=== PATIENT | male | born 1925 | race Caucasian/White ===

== ENCOUNTER 2017-01-28 17:28 | Emergency (ER) | payer MEDICARE, OTHER ==
[2017-01-28] MEDS ORDERED: fentaNYL 100 MCG/2 ML SDV IM ONE (18:40)
--- NOTE | 2017-01-28 18:48 | EDM.PDOC ---
ED HPI GENERAL MEDICAL PROBLEM - General Chief Complaint: General Stated Complaint: FALL/LT SIDE PAIN Time Seen by Provider: 01/28/17 18:11 Source of Information: Reports: Patient, Family (Spouse), RN Notes Reviewed History Limitations: Reports: No Limitations - History of Present Illness INITIAL COMMENTS - FREE TEXT/NARRATIVE: Brought by his of 9 years Chief complaint: Fall, left side injury HPI: 89-year-old male from [place], he and his are staying at a home on [address] Has a history of disequilibrium, Fell twice today First incident occurred about 6:30 AM. He was in the bedroom carrying clothes back he up and tripped over a suitcase on the floor. Hit the back of his head on dresser drawers. His was in the room and witnessed the fall. He got up right away on his own. He did not really have any pain and there is no swelling of the back of her head. He has breakfast and his reports that he behaved normally the rest of the day, no nausea or vomiting. Second episode occurred at about 11 AM, he stumbled in the garage, landing on the floor, landing on something on his left side. He got up, did have some pain right away but he did not tell his about the fall until later. They've come into town to do groceries, the pain became too intense as he was walking through the house so they came here. He was able to get in and out of the car on his own but with some difficulty. Pain is on the left side of the chest and in the left side, aggravated by deep breath movement turning laughing and by touching. Better if he stays completely still. No fever No cough No recent illness History includes coronary artery disease but no heart attack, one stent. He has a narrow valve in his heart, presumably aortic stenosis, he is not a surgical candidate He is on clopidogrel and Xarelto. Left Abdomen Pain Score (Numeric/FACES): 6 - Related Data Allergies Allergy/AdvReac Type Severity Reaction Status Date / Time levofloxacin [From Levaquin] Allergy Abdominal Verified 01/28/17 18:07 Pain Home Meds: Home Meds *Xarelto PO DAILY 01/28/17 [History] Carvedilol [Carvedilol] 6.25 mg PO BID 01/28/17 [History] Clopidogrel [Plavix] 75 mg PO DAILY 01/28/17 [History] Furosemide [Furosemide] 20 mg PO ASDIRECTED 01/28/17 [History] Gabapentin [Neurontin] 300 mg PO BID 01/28/17 [History] Hydrocodone/Acetaminophen [Hydrocodon-Acetaminophen 5-325] 1 each PO Q4HR PRN # 8 tablet 01/28/17 [Rx] Tamsulosin [Tamsulosin 24 Hr] 0.4 mg PO DAILY 01/28/17 [History] amLODIPine Besylate [Norvasc] 2.5 mg PO DAILY 01/28/17 [History] atorvaSTATin [Lipitor] 40 mg PO BEDTIME 01/28/17 [History] traMADol [Take Home: traMADol 50 MG, 4 Tab Pack] 50 mg PO ASDIRECTED PRN [History] Past Medical History HEENT History: Reports: Cataract, Hard of Hearing Cardiovascular History: Reports: Afib, High Cholesterol, Hypertension, Pacemaker , Other (See Below) Other Cardiovascular History: valve stenosis Gastrointestinal History: Reports: Cholelithiasis, GERD Genitourinary History: Reports: BPH Musculoskeletal History: Reports: Back Pain, Chronic Oncologic (Cancer) History: Reports: Prostate - Past Surgical History HEENT Surgical History: Reports: Cataract Surgery Cardiovascular Surgical History: Reports: Carotid Stents, Percutaneous Transluminal Angioplasty, Other (See Below) (Thoracic surgery for traumatic hemopericardium, a complication of his pacemaker insertion) GI Surgical History: Reports: Appendectomy, Cholecystectomy, Colonoscopy, Hernia Repair/Other Male Surgical History: Reports: Other (See Below) Other Male Surgeries/Procedures: radiation of prostrate Musculoskeletal Surgical History: Reports: Other (See Below) Other Musculoskeletal Surgeries/Procedures:: cartilage implant into both knees Social & Family History - Tobacco Use Smoking Status *Q: Former Smoker Used Tobacco, but Quit: Yes Month Tobacco Last Used: many years ago - Caffeine Use Caffeine Use: Reports: None - Recreational Drug Use Recreational Drug Use: No ED ROS GENERAL - Review of Systems Review Of Systems: See Below Constitutional: Reports: No Symptoms HEENT: Reports: Hearing Loss (Chronic). Denies: Eye Pain, Nose Pain, Rhinitis, Throat Pain Respiratory: Reports: Shortness of Breath (Hurts to breathe so he is breathing more shallowly). Denies: Cough Cardiovascular: Reports: Chest Pain. Denies: Blood Pressure Problem, Lightheadedness, Palpitations, Syncope Endocrine: Reports: No Symptoms GI/Abdominal: Reports: No Symptoms : Reports: No Symptoms Musculoskeletal: Reports: No Symptoms Skin: Reports: No Symptoms Neurological: Reports: Difficulty Walking (Balance problems). Denies: Headache , Numbness, Weakness Psychiatric: Reports: No Symptoms ED EXAM, GENERAL - Physical Exam Exam: See Below Exam Limited By: No Limitations General Appearance: Alert, Mild Distress, Other (Pleasant alert and interactive , definitely coherent without any evidence of cognitive decline) Eye Exam: Bilateral Eye: Normal Inspection Ears: Normal External Exam Nose: Normal Inspection, Normal Mucosa Throat/Mouth: Normal Inspection Head: Normocephalic, Other (No scalp swelling but there is a small bruise near the vertex of the scalp) Neck: Normal Inspection, Supple, Non-Tender Respiratory/Chest: Lungs Clear, Normal Breath Sounds, Splinting, Other (Chest tenderness left lower anterior ribs and left flank area, palpation of the front. Aggravates the back area) Cardiovascular: Normal Peripheral Pulses, Regular Rate, Rhythm GI/Abdominal: Normal Bowel Sounds, Soft, Non-Tender, No Organomegaly, No Distention, Other (Large body habitus makes examination difficult) Extremities: Normal Inspection, Non-Tender Neurological: Alert, Oriented, Normal Cognition, No Motor/Sensory Deficits Psychiatric: Normal Affect, Normal Mood Skin Exam: Warm, Dry, Intact, Normal Color Lymphatic: No Adenopathy Course - Vital Signs Last Recorded V/S: Last Vital Signs Temp 36.6 C 01/28/17 18:04 Pulse 60 01/28/17 20:46 Resp 16 01/28/17 20:46 BP 180/84 H 01/28/17 20:46 Pulse Ox 93 L 01/28/17 20:46 - Orders/Labs/Meds Orders: Active Orders 24 hr Category Date Time Status EKG Documentation Completion [RC] ASDIRECTED Care 01/28/17 18:53 Active Chest 2V [CR] Stat Exams 01/28/17 18:33 Taken Head wo Cont [CT] Stat Exams 01/28/17 18:34 Taken EKG 12 Lead [EK] Routine Ther 01/28/17 18:53 Ordered Labs: Laboratory Tests 01/28/17 01/28/17 01/28/17 Range/Units 18:33 18:33 20:02 WBC 9.4 (4.5-11.0) K/uL RBC 4.23 L (4.30-5.90) M/uL Hgb 12.7 (12.0-15.0) g/dL Hct 38.4 L (40.0-54.0) % MCV 91 (80-98) fL MCH 30 (27-31) pg MCHC 33 (32-36) % Plt Count 224 (150-400) K/uL Sodium 139 L (140-148) mmol/L Potassium 3.9 (3.6-5.2) mmol/L Chloride 105 (100-108) mmol/L Carbon Dioxide 28 (21-32) mmol/L Anion Gap 9.9 (5.0-14.0) mmol/L BUN 25 H (7-18) mg/dL Creatinine 0.9 (0.8-1.3) mg/dL Est Cr Clr Drug Dosing 53.83 mL/min Estimated GFR (MDRD) > 60 (>60) Glucose 115 H (74-106) mg/dL Calcium 8.3 L (8.5-10.1) mg/dL Urine Color Yellow Urine Appearance Clear Urine pH 5.0 (4.5-8.0) Ur Specific [place] 1.020 (1.008-1.030) Urine Protein Negative (NEGATIVE) mg/dL Urine Glucose (UA) Normal (NEGATIVE) mg/dL Urine Ketones Negative (NEGATIVE) mg/dL Urine Occult Blood Negative (NEGATIVE) Urine Nitrite Negative (NEGAITVE) Urine Bilirubin Negative (NEGATIVE) Urine Urobilinogen Normal (NORMAL) mg/dL Ur Leukocyte Esterase Negative (NEGATIVE) Urine RBC 0-5 (0-5) Urine WBC 0-5 (0-5) Ur Epithelial Cells Rare Amorphous Sediment Not seen Urine Bacteria Not seen Urine Mucus Few Meds: Medications Discontinued Medications Generic Name Dose Route Start Last Admin Trade Name Freq PRN Reason Stop Dose Admin Fentanyl 100 mcg 01/28/17 18:40 01/28/17 18:51 Sublimaze IM 01/28/17 18:41 100 mcg ONETIME ONE Administration - Re-Assessments/Exams Free Text/Narrative Re-Assessment/Exam: 01/28/17 18:52 89-year-old male with injury to the left side from fall and injury to his head from fall with no apparent consequences earlier today. 100 mcg fentanyl IM for his chest pain Labs and x-rays ordered 01/28/17 21:12 EKG showed a ventricular paced rhythm X-ray chest negative for acute pulmonary injury by my interpretation, there is cardiomegaly which patient is aware of, his hiatus hernia. No effusions. Lab tests are reassuring, urinalysis negative CT scan negative for intracranial bleeding or signs of injury Discharge home Pain medicine, OTC or prescription Get rechecked if vomiting, severe headache, change in behavior 01/28/17 21:10 01/28/17 21:49 Departure - Departure Time of Disposition: 21:15 Disposition: Home, Self-Care 01 Condition: good Clinical Impression: Anticoagulated by anticoagulation treatment Fracture of rib, single, closed Qualifiers: Encounter type: initial encounter Laterality: left Qualified Code(s): S22.32XA - Fracture of one rib, left side, initial encounter for closed fracture Head injury, acute, without loss of consciousness Qualifiers: Encounter type: initial encounter Qualified Code(s): S09.90XA - Unspecified injury of head, initial encounter - Discharge Information Prescriptions: Hydrocodone/Acetaminophen [Hydrocodon-Acetaminophen 5-325] 1 each PO Q4HR PRN # 8 tablet PRN Reason: Moderate to severe pain Instructions: Head Injury, Adult, Rib Fracture Referrals: PCP,None [Primary Care Provider] - Forms: ED Department Discharge Additional Instructions: Get rechecked promptly if there is fever, repeated vomiting, abnormal behavior - My Orders Last 24 Hours: My Active Orders 01/28/17 18:33 Chest 2V [CR] Stat 01/28/17 18:34 Head wo Cont [CT] Stat 01/28/17 18:53 EKG Documentation Completion [RC] ASDIRECTED EKG 12 Lead [EK] Routine - Assessment/Plan Last 24 Hours: My Active Orders 01/28/17 18:33 Chest 2V [CR] Stat 01/28/17 18:34 Head wo Cont [CT] Stat 01/28/17 18:53 EKG Documentation Completion [RC] ASDIRECTED EKG 12 Lead [EK] Routine
[2017-01-28 20:48] VITALS: BP 180/84
--- NOTE | 2017-01-29 09:16 | CR ---
Cardiomegaly. Sternotomy. No focal consolidation. Hiatal hernia. Atherosclerotic aorta.
== END 2017-01-28 21:54 | disposition home or self-care (01) ==
LOC: JP.ED 17:28
DX: S09.90XA Unspecified injury of head, initial encounter (principal); S22.32XA Fracture of one rib, left side, initial encounter for closed fracture; I10 Essential (primary) hypertension; E78.00 Pure hypercholesterolemia, unspecified; K21.9 Gastro-esophageal reflux disease without esophagitis; Z98.49 Cataract extraction status, unspecified eye; Z90.49 Acquired absence of other specified parts of digestive tract; Z98.890 Other specified postprocedural states; Z79.01 Long term (current) use of anticoagulants; Z88.8 Allergy status to other drugs, medicaments and biological substances; Z79.899 Other long term (current) drug therapy; Z87.891 Personal history of nicotine dependence; W19.XXXA Unspecified fall, initial encounter
CPT/HCPCS: 36415; 70450; 71020; 80048; 81001; 85027; 93005; 93010; 96372; 99284; 99285; J3010